=== PATIENT | female | born 1985 | race Caucasian/White ===

== ENCOUNTER → 2016-08-05 | Outpatient (REF) | payer OTHER ==
[~2016-08-05] MED LIST: IBUP60TA PO; METF500T PO; PERCOCET PO; PREN1TAB11 PO
[2016-08-05 11:30] LABS: MEAN CORPUSCULAR HEMOGLOBIN 27.8 pg (27.0-33.0); MEAN CORPUSCULAR HGB CONC 32.3 g/dl (32.0-36.5); MEAN CORPUSCULAR VOLUME 86.2 fl (80.0-96.0); RED CELL DISTRIBUTION WIDTH 13.9 % (11.5-14.5)
[2016-08-05 12:01] LABS: ESTRADIOL 56.6 PG/ML; LUTEINIZING HORMONE 6.3 mIU/mL
[2016-08-05 12:02] LABS: FOLLICLE STIMULATING HORMONE 5.9 mIU/mL
[2016-08-05 12:32] LABS: ALBUMIN 3.6 GM/DL (3.2-5.2); ALBUMIN/GLOBULIN RATIO 1.06 (1.00-1.93); ALKALINE PHOSPHATASE 118 U/L (45-117); ALT/SGPT 28 U/L (12-78); ANION GAP 6 MEQ/L (8-16); AST/SGOT 18 U/L (15-37); BILIRUBIN,TOTAL 0.2 MG/DL (0.2-1.0); BLOOD UREA NITROGEN 7 MG/DL (7-18); CALCIUM LEVEL 8.9 MG/DL (8.5-10.1); CARBON DIOXIDE LEVEL 28 MEQ/L (21-32); CHLORIDE LEVEL 105 MEQ/L (98-107); GLOMERULAR FILTRATION RATE > 60.0 (>60); GLUCOSE, FASTING 112 MG/DL (70-105); POTASSIUM SERUM 4.9 MEQ/L (3.5-5.1); SODIUM LEVEL 139 MEQ/L (136-145)
== END ==
LOC: M SFHCLERA 09:29
PROVIDERS: ATTEND Physician Assistant
DX: E28.2 Polycystic ovarian syndrome (principal); N92.6 Irregular menstruation, unspecified

== ENCOUNTER → 2016-08-05 | Outpatient (CLI) | payer OTHER ==
--- NOTE | 2016-08-06 07:41 | REP ---
Clinical: Abnormal menstrual cycles. Technique: Transabdominal pelvic ultrasound followed by transvaginal examination for better evaluation of the endometrium and adnexa with color Doppler evaluation of the ovaries. Findings: Bladder is unremarkable and measures 6.4 x 4.4 x 7.9 cm. Normal anteverted uterus measures 8.0 x 4.6 x 6.1 cm . The endometrial complex measures 10.2 mm thickness. No discrete uterine or endometrial abnormalities are appreciated. Incidental note is made of few Nabothian cysts. Bilateral ovaries are normal in appearance and vascularity without evidence for torsion. Right ovary measures 3.9 x 2.6 x 2.4 cm ; R I = 0.55 . Left ovary measures 3.3 x 2.2 x 2.4 cm ; R I = 0.38 . No pelvic fluid or adnexal mass lesion . Impression: 1. Essentially normal pelvic ultrasound. 2. Mildly heterogeneous uterus without discrete lesions and minimally thickened endometrial complex likely physiologic and related to menstrual cycle. Signed by Tuan Martinez MD 08/06/2016 07:32 A
== END ==
LOC: M LRY 09:48
PROVIDERS: ATTEND Physician Assistant
DX: N92.6 Irregular menstruation, unspecified (principal)

== ENCOUNTER → 2016-08-27 | Outpatient (REF) | payer OTHER | LOC: M LAB REF 16:18 | PROVIDERS: ATTEND Physician Assistant | DX: Z12.4 Encounter for screening for malignant neoplasm of cervix (principal) ==